=== PATIENT | male | born 1940 | race Caucasian/White ===

== ENCOUNTER → 2016-10-28 08:56 | Outpatient (CLI) | payer OTHER ==
[2016-10-28 10:13] LABS: APPEARANCE CLOUDY (CLEAR); BACTERIA MANY /hpf (NONE SEEN); BILIRUBIN NEGATIVE (NEGATIVE); COLOR YELLOW (YELLOW); EPITHELIAL CELLS 0-5 /hpf (0-5); GLUCOSE NEGATIVE (NEGATIVE); KETONE NEGATIVE (NEGATIVE); LEUKOCYTE ESTERASE 2+ (NEGATIVE); NITRITE NEGATIVE (NEGATIVE); PROTEIN TRACE mg/dL (NEGATIVE); SPECIFIC GRAVITY 1.005 (1.005-1.020); UROBILINOGEN NORMAL (NORMAL); WHITE CELLS - URINE >50 /hpf (0-5)
[2016-10-28 10:35] LABS: ALBUMIN 3.9 g/dL (3.4-5.0); ANION GAP 12.3 mmol/L (8-16); BILIRUBIN - TOTAL 0.58 mg/dL (0.2-1.3); CALCIUM 9.1 mg/dL (8.5-10.1); CARBON DIOXIDE 33.5 mmol/L (21.0-32.0); CREATININE - SERUM 1.3 mg/dL (0.6-1.3); POTASSIUM - SERUM 3.8 mmol/L (3.5-5.1)
[2016-10-28 10:37] LABS: PROTEIN - SERUM 7.2 g/dL (6.4-8.2)
--- NOTE | 2016-11-04 14:38 | EC ---
PATIENT:MANNY HARRISON DATE OF SERVICE: 10/28/16 SEX: M MEDICAL RECORD: [id number] DATE OF : 44 LOCATION:[facility] AGE OF PATIENT: 76 ADMISSION DATE: 10/28/16 REFERRING PHYSICIAN: INTERPRETING PHYSICIAN: JONI GALVAN MD ECHOCARDIOGRAM REPORT ECHO CHARGES 4 ECHO COMPLETE CLINICAL DIAGNOSIS: ATRIAL FIB CHRONIC ECHOCARDIOGRAPHIC MEASUREMENTS (adult normal given) AC root (d.<3.7cm) 3.9 LV Septum d (<1.2 cm> 1.6 Valve Excursion 1.7 LV Septum (systole) 1.7 Left Atria (s.<4.0cm> 4.6 LVPW d(<1.2cm) 1.9 RV (d.<2.3cm) 4.5 LVPW (sytole) 2.1 LV diastole(<5.6CM) 4.3 MV E-F(>70mm/sec) LV systole 2.8 LVOT Diameter 1.2 MV exc.(>10mm) 1.6 Est.ejection fraction (50-75%) Pericardial Effusion N DOPPLER: LVIT A 83.0 E LA RVSP 37 LVOT 128 AOP1/2T 387 Asc. 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 Galvan TAPE# PACS DATE OF SERVICE: 10/28/2016 Echocardiogram FINDINGS: 1. Left ventricular chamber size is within normal limits. Left ventricular systolic function is normal. Overall ejection fraction estimated at 55%. 2. Left atrium is enlarged at 4.6 cm. Right atrium and right ventricular chamber sizes are as well moderately enlarged. 3. Valvular structures have normal structure and motion. ECHOCARDIOGRAM REPORT [id number] MANNY HARRISON 4. Doppler interrogation reveals mild aortic insufficiency, mild mitral regurgitation, mild to moderate tricuspid regurgitation, no other valvular insufficiency or stenosis. Pulmonary systolic pressure is normal estimated at 37 mmHg. 5. No evidence of pericardial effusion or left ventricular thrombus. TRANSINT:[id number] Voice Confirmation ID: [id number] DOCUMENT ID: [id number] JONI GALVAN MD at [id number] CC: [id number] DICTATION DATE: 10/28/16 1217 DIRECTOR OF SOCIAL WORK: 10/29/16 0137 DEP CLI 10/28/16 [id number] [place] [id number]
== END | disposition home or self-care (01) ==
LOC: D.ECHO 08:56
PROVIDERS: Physical Medicine & Rehabilitation
DX: I48.91 Unspecified atrial fibrillation (principal)

== ENCOUNTER → 2016-11-27 13:03 | Outpatient (CLI) | payer OTHER | END | disposition home or self-care (01) | LOC: D.RAD 13:03 | DX: I50.9 Heart failure, unspecified (principal) ==